=== PATIENT | male | born 1985 | race Caucasian/White ===

== ENCOUNTER 2025-07-28 14:49 | Emergency (ER) | payer MEDICAID ==
[~2025-07-28] VITALS: Ht 188 cm; Wt 127.7 kg
[~2025-07-28 14:49] MED LIST: NAP220T PO; NEOM10DR22 OT; NO HOME MEDS; OMEP20TA23 PO; PSEU-225 PO
--- NOTE | 2025-07-28 15:51 | Physician Documentation ---
History of Present Illness ~ Chief Complaint: Back Pain Stated Complaint: BACK PAIN Time Seen by MD: 16:10 OK to notify your PCP?: Yes Primary Medical Doctor: None Source: patient Mode of Arrival: POV Exam Limitations: no limitations HPI 40-year-old male presents with left flank pain after he slipped and twisted abnormally. He is also having some right knee pain. He has a history of back issues and this feels completely different. He states that the pain feels very deep and there was no tenderness to palpation of the superficial muscle. He reports taking 2 Tylenol 1 hour prior to arrival. Medication Reconciliation Allergies: Coded Allergies: No Known Allergies (Unverified , 05/29/12) Scheduled Naproxen Sodium* (Aleve*), 440 MG PO BID Neomy Sulf/Polymyx B Sulf/Hc (Cortisporin Ear Suspension), 10 ML OT BID Omeprazole Magnesium (Prilosec Otc), 20 MG PO BIDAC Pseudoephedrine Hcl (Sudafed), 30 MG PO Q6H Miscellaneous Medications Home Med List (No Home Medications), (Reported) Home Med List (No Home Medications), (Reported) Past Medical History Past Medical History: Gastritis, Peptic Ulcer Disease Past Surgical History: no surgical history Alcohol Use: Occasionally Drug Use: none Lives with: Other Occupation: employed Review of Systems All Other Systems at this time: Reviewed and Negative Physical Exam Physical Exam Vital Signs: RN Vital Signs have been reviewed: Yes, Temperature: 97.4, Source: Temporal, Heart Rate: 83, Respiratory Rate: 18, BP: 123/85, Pulse Oximetry: 97, Weight: 127.650 Oxygen Flow Rate: 0 Pulse Oximetry Reflects: adequate oxygenation Physical Exam General: Alert, no distress. Respiratory: No respiratory distress, equal chest rise and fall. Cardiovascular: Regular rate and rhythm. Extremities: Normal range of motion, no deformity. negative mcmurrays Back: No CVA tenderness, no tenderness to palpation of left flank, no midline tenderness. Neurologic: Oriented x4. Psychiatric: Normal mood and affect. Skin: Normal color, warm and dry. Progress Results/Orders Results/Orders Completed Orders - SALTY BECKWITH NP Ketorolac Trometh 30mg/Ml Vial (Toradol (07/28/25 16:15) Urinalysis (07/28/25 16:22) Medications Received in ER Medications (Trade) Dose Ordered Sig/Kira Route PRN Reason Start Time Stop Time Status Last Admin Dose Admin (Toradol inj. 30mg/ml) 30 mg ONCE ONCE IM 07/28/25 16:15 07/28/25 16:17 DC 07/28/25 16:24 30 MG Vital Signs 07/28/25 07/28/25 07/28/25 07/28/25 15:12 16:20 16:24 17:06 Temp 97.4 97.8 Pulse 83 80 Resp 18 18 16 16 B/P (MAP) 123/85 126/86 Pulse Ox 97 98 O2 Flow Rate 0 Laboratory Tests Test 07/28/25 15:24 Urine Specimen Description Cln catch midstream Urine Color Straw Urine Clarity Clear Urine pH 6.0 Urine Specific [place] <=1.005 Urine Protein Negative Urine Glucose (UA) Negative Urine Ketones Negative Urine Occult Blood Negative Urine Nitrite Negative Urine Bilirubin Negative Urine Urobilinogen 0.2 Urine Leukocyte Esterase Negative Volume Urine Centrifuged 10 ml Urine Comment Medical Decision Making Findings Patient presents with a mostly chronic symptoms regarding his back however his right knee did have a notable joint effusion in. He is already being followed in the outpatient setting regarding referrals to physical therapy. Treated him for pain and discharge him for outpatient evaluation Differential Dx:Considerations: Include: AAA, Aortic dissection, Appendicitis, Bowel obstruction, Cholelithiasis, Cholangitis, DJD, Fracture, Hepatitis, HNP, Musculoskeletal pain, Pancreatitis, Pyelonephritis, Renal infarction, Strain, Urinary obstruction, Urolithiasis, Urinary tract infection, Other Departure Disposition: 01 HOME / SELF CARE / HOMELESS Impression: Primary Impression: Low back pain Additional Impression: Strain of lumbar region Condition: Stable Discharge Instructions: Chronic Back Pain Referrals: NO PRIMARY CARE PROVIDER (PCP) Education Educated: Patient Educated regarding: diagnosis Additional Comment Medical Screen Exam This patient recieved a medical screening examination. After reviewing the individual's medical complaints with presenting symptoms and performing an appropriate physical examination, it was determined that no immediate life- threatening emergency medical condition is present. This individual is also not a women having contractions. Signature Scribe Signature: ty Attestation: Scribed for Salty Beckwith Music Video Director by Salty Brody NP . 07/28/25 18:15 SAW MILNERP Jul 28, 2025 15:51 SALTY BECKWITH NP Jul 28, 2025 17:17
--- NOTE | 2025-07-28 16:21 | RADIOLOGY REPORT ---
CLINICAL INDICATION: right knee pain TECHNIQUE: Right DI KNEE, COMP 4 VW MIN Comparison: None FINDINGS/IMPRESSION: : There is no evidence of acute fracture or dislocation. Small joint effusion.
[2025-07-28] MEDS: ketorolac trometh 30MG/ML vial 30 MG/ML VIAL IM ONE (16:24)
[2025-07-28 16:39] LABS: LEUKOCYTE ESTERASE ,URINE NEGATIVE (Neg); NITRITES, URINE NEGATIVE (Neg); OCCULT BLOOD,URINE NEGATIVE (Neg)
[2025-07-28 16:40] LABS: UA COLLECTION TYPE CLN CATCH MIDSTREAM
[2025-07-28 17:06] VITALS: BP 126/86; PULSE 80; RESP 16; TEMP 97.8; O2SAT 98
== END 2025-07-28 17:29 | disposition home or self-care (01) ==
LOC: ER 14:50
DX: S39.012A Strain of muscle, fascia and tendon of lower back, initial encounter (principal); M25.561 Pain in right knee; Z72.89 Other problems related to lifestyle; Z79.899 Other long term (current) drug therapy; X50.1XXA Overexertion from prolonged static or awkward postures, initial encounter; Y93.89 Activity, other specified; Y92.89 Other specified places as the place of occurrence of the external cause; Y99.8 Other external cause status
CPT/HCPCS: 73564; 81003; 96372; 99284; J1885